=== PATIENT | female | born 1970 | race Caucasian/White ===

== ENCOUNTER 2016-11-27 14:10 | Emergency (ER) | payer OTHER ==
[2016-11-27 14:29] VITALS: BP 118/87; PULSE 65; TEMP 98.8; BMI 37.5
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
== END 2016-11-27 17:00 | disposition home or self-care (01) ==
LOC: FER 14:10
DX: S43.401A Unspecified sprain of right shoulder joint, initial encounter (principal); V43.52XA Car driver injured in collision with other type car in traffic accident, initial encounter; Y93.89 Activity, other specified; Y92.410 Unspecified street and highway as the place of occurrence of the external cause; M43.10 Spondylolisthesis, site unspecified
CPT/HCPCS: 73030-TC-RT; 99282-25